=== PATIENT | female | born 1985 | race African-American/Black ===

== ENCOUNTER 2019-07-01 20:50 | Emergency (ER) | payer BC, SELFPAY ==
[2019-07-01 20:57] VITALS: BP 154/100; PULSE 84; RESP 18; TEMP 36.2; O2SAT 100
[2019-07-01] MEDS: SODIUM CHLORIDE 0.9% IV 1,000 ML 999 ML IV CONT (22:22)
[2019-07-01] MEDS: METOCLOPRAMIDE HCL INJ 10 MG/2 ML VIAL IV PUSH (22:23)
[2019-07-01] MEDS: KETOROLAC 30 MG/ML VIAL (*BKC) IV PUSH (22:24)
--- NOTE | 2019-07-01 22:24 | ED.HA ---
HPI - Headache General Chief Complaint: Headache Stated Complaint: migraine Time Seen by Provider: 07/01/19 20:52 History of Present Illness HPI Narrative: Patient is a 34-year-old female who presents the ER with headache. Reports she is been having worsening migraines over the last couple of months. She has been taking triptan's without relief. No fevers or chills or sweats. She has no nausea or vomiting. The headache starts in the back of her head and has settled into the front of her head. She reports it makes her feel lightheaded and unsteady and like her arms are heavy. She has no focal weakness or numbness however. She is without fevers or chills. Related Data Home Medications Medication Instructions Recorded Confirmed norethindrone-e.estradiol-iron tablet 07/01/19 [Aurovela Fe 1- (28)] Allergies Allergy/AdvReac Type Severity Reaction Status Date / Time prednisone Allergy Intermediate HEART Verified 07/01/19 21:50 FLUTTERS Review of Systems Review of Systems: All systems reviewed & are unremarkable except as noted in HPI and below Constitutional: Constitutional: Denies chills, Reports fatigue, Denies fever(s) and Reports weakness Eyes: Eyes: Denies change in vision and Reports photophobia ENT: Denies nasal congestion and Denies sore throat Cardiovascular: Cardiovascular: Denies chest pain and Denies radiating jaw, neck or arm pain Respiratory: Respiratory: Denies chest congestion, Denies dyspnea and Denies wheezing Gastrointestinal: Gastrointestinal: Denies abdominal pain, Denies diarrhea, Denies nausea and Denies vomiting Neurologic: Reports headache(s), Denies focal weakness, Denies numbness and Reports weakness PMFSH Past Medical History Medical History (Updated 07/01/19 @ 23:33 by Jose Palacios MD) Hypertension Migraine headache Surgical History Surgical History (Updated 07/01/19 @ 23:13 by Jose Palacios MD) H/O tubal ligation Social History Social History (Updated 07/01/19 @ 23:13 by Jose Palacios MD) Smoking status: Never smoker Gender identity (if verbalized by the patient): Female Exam Narrative: Exam Narrative: GENERAL: Well-appearing, well-nourished, and in no acute distress. HEAD: Normocephalic, atraumatic. EYES: PERRL and EOMI. ENT: Mucous membranes moist. CHEST: Clear to auscultation. No respiratory distress. HEART: Regular rate and rhythm. Normal peripheral pulses. EXTREMITIES: Normal range of motion. No edema. SKIN: Warm, dry, no rash. NEURO: No focal deficits. Nerves II through XII intact. No upper extremity drift. Alert and oriented x3. Course Course Emergency Course: Headache resolved with Benadryl/Reglan/Toradol and IV fluid. Vital Signs Vital signs: Vital Signs Temperature 97.1 F L 07/01/19 20:57 Pulse Rate 84 07/01/19 20:57 Respiratory Rate 18 07/01/19 20:57 Blood Pressure 154/100 H 07/01/19 20:57 Pulse Oximetry 100 07/01/19 20:57 Temperature 97.1 F L 07/01/19 20:57 Pulse Rate 85 07/01/19 22:26 Respiratory Rate 28 H 07/01/19 22:26 Blood Pressure 147/102 H 07/01/19 22:26 Pulse Oximetry 100 07/01/19 22:26 Discharge Plan Discharge Clinical Impression: Headache Patient Disposition: Home, Self-Care Condition: Stable Instructions: Acute Headache (ED) Additional Instructions: Return to ER if you cannot keep down food or water, you have chest pain or shortness of breath, you have additional concerns. Prescriptions: No Action norethindrone-e.estradiol-iron [Aurovela Fe 1-20 (28)] 1 mg-20 mcg (21)/75 mg (7) tablet RF: 0 Follow-up/Referrals: ROOM PHYSICIAN,EMERGENCY [Primary Care Provider] - Arun Fagan MD [Physician] - 1 Week
[2019-07-01 22:26] VITALS: BP 147/102; PULSE 85; RESP 28; O2SAT 100
[2019-07-01 23:43] VITALS: BP 148/90; PULSE 90; RESP 30; O2SAT 99
== END 2019-07-01 23:43 | disposition home or self-care (01) ==
PROVIDERS: Emergency Provider Emergency Medicine
DX: R51 Headache (principal); I10 Essential (primary) hypertension
CPT/HCPCS: 96361; 96374; 96375; 99284; J1200; J1885; J2765; J7030

== ENCOUNTER 2020-02-23 02:24 | Outpatient (CLI) | payer BC, SELFPAY ==
[2020-02-23 19:32] LABS: SARS-CoV-2 RNA PCR Negative
== END 2020-02-23 02:25 | disposition home or self-care (01) ==
LOC: ANHCOVIDDT 02:24
PROVIDERS: PCP Physician Assistant; Visit Provider Obstetrics & Gynecology
DX: Z01.812 Encounter for preprocedural laboratory examination (principal); Z20.822 Contact with and (suspected) exposure to COVID-19
CPT/HCPCS: C9803; U0003

== ENCOUNTER 2020-02-23 09:24 | Outpatient (CLI) | payer BC, SELFPAY ==
--- NOTE | 2020-02-23 09:52 | ECG_ITS ---
Measurements Intervals [place] Rate: 72 P: 48 [place]: 161 QRS: 39 QRSD: 73 T: 53 QT: 396 QTc: 435 Interpretive Statements SINUS RHYTHM CANNOT RULE OUT SEPTAL INFARCT, AGE INDETERMINATE ABNORMAL ECG Electronically Signed On 02-23-2020 14:21:34 SOCIAL MEDIA ASSISTANT by Dennys Verdugo D.O.
== END 2020-02-23 09:25 | disposition home or self-care (01) ==
PROVIDERS: PCP Physician Assistant; Visit Provider Anesthesiology
DX: Z01.818 Encounter for other preprocedural examination (principal); I10 Essential (primary) hypertension; R94.31 Abnormal electrocardiogram [ECG] [EKG]
CPT/HCPCS: 93005

== ENCOUNTER 2020-02-27 02:53 | Day surgery (SDC) | payer BC, SELFPAY ==
[2020-02-20 17:25] VITALS: BMI 32.9
[2020-02-27] VITALS (7 sets, daily range): BP systolic 126–143; BP diastolic 85–96; PULSE 62–83; RESP 10–20; TEMP 36.2–36.8; O2SAT 100
[2020-02-27] MEDS: ACETAMINOPHEN 500 MG TABLET 1000 MG PO (06:32)
[2020-02-27] MEDS: LACTATED RINGERS 1,000 ML 30 ML IV CONT ×2 (06:35→09:30)
[2020-02-27] MEDS: KETOROLAC 15 MG/ML VIAL (*BKC) IV PUSH (06:38)
--- NOTE | 2020-02-27 07:11 | P.PNAN_ITS ---
Anes - Initial Pre Proc Eval Procedure: Operation Date: 02/27/20 07:30 Proposed Procedures p Laparoscopic Right Ovarian Cystectomy - Hoa Amador MD Date/Time: 02/27/20 07:11 Surgeon: Hoa Amador MD Pre Op Diagnosis: Right Ovarian Cyst Patient Data Age: 35 Gender: F Height: 5 ft 6 in Weight: 92.53 kg Allergies Allergy/AdvReac Type Severity Reaction Status Date / Time prednisone AdvReac Intermediate HEART Verified 02/27/20 06:07 FLUTTERS Home Medications Medication Instructions Recorded Confirmed Type Elderberry 2 caplet PO DAILY 02/20/20 02/27/20 History apple cider vinegar 1,000 mg PO DAILY 02/20/20 02/27/20 History ascorbic acid (vitamin C) 1 g PO DAILY 02/20/20 02/27/20 History fluticasone propionate [Allergy 2 spray INTRANASAL DAILY 02/20/20 02/27/20 History Relief (fluticasone)] loratadine [Claritin] 10 mg PO DAILY 02/20/20 02/27/20 History metoprolol succinate 25 mg PO DAILY 02/20/20 02/27/20 History norethindrone (contraceptive) 0.35 mg PO DAILY 02/20/20 02/27/20 History ubrogepant [Ubrelvy] 50 mg PO ONCE PRN 02/20/20 02/27/20 History zinc oxide-zinc citrate 50 mg PO DAILY 02/20/20 02/27/20 History nitrofurantoin monohyd/m-cryst 1 cap PO BID 02/27/20 02/27/20 History Patient hx anesthesia problems: none Family hx anesthesia problems: none PMFSH Past Medical History Medical History (Updated 02/27/20 @ 07:10 by Ravindra Guzmán MD) Hypertension Migraine headache Mitral valve prolapse Surgical History Surgical History (Updated 07/01/19 @ 23:13 by Jose Palacios MD) H/O tubal ligation Social History Social History (Updated 07/01/19 @ 23:13 by Jose Palacios MD) Smoking status: Never smoker Second hand tobacco smoke exposure: No Alcohol intake: current Alcohol use details: 1 VERY RARELY Substance use: never Living arrangements: with family Gender identity (if verbalized by the patient): Female Spiritual care concerns: No Anes - Eval Final PreProcedure Day of Procedure 02/27/20 07:11 Patient weight: overweight Heart: regular rate and rhythm Lungs: clear to auscultation Airway: Mallampati scale class II Neurological: alert and oriented Last oral intake: >/= 8 hours ASA classification: II Emergent: no Anesthetic plan: proceed Anesthesia type and monitoring: general ETT and standard monitoring Informed Consent: The patient's anesthetic plan and its attendant risks and be nefits were discussed with the patient/family/POA. Questions were solicited and answers provided to the satisfaction of the patient/family/POA.
--- NOTE | 2020-02-27 07:17 | WPDHPUPDATE1 ---
History and Physical Update Update Date/Time: 02/27/20 07:17 History and Physical has been reviewed, including an updated exam of the patient. There are NO changes in the patient's condition. Risks, benefits, and alternatives have been discussed and questions answered. Patient agrees to proceed with procedure.
--- NOTE | 2020-02-27 09:15 | P.OP_ITS ---
Procedure Note - Detailed Date of procedure: 02/27/20 Pre-op diagnosis: Right Ovarian Cyst Pelvic pain Procedure performed: Radical resection of pelvic peritoneum and endometriosis, 1.25 hours of dissection Description of procedure: The patient was taken the operating room. She was prepped and draped in the dorsal lithotomy position after induction of general anesthesia. A 5 mm left upper quadrant incision was made in the abdominal skin with a scalpel. A 5 mm trocar was inserted the intra-abdominal cavity under direct visualization of the scope. A 5 mm left lower quadrant incision was made with the scalp on the abdominal skin and a 5 mm trocar was inserted the intra- abdominal cavity under direct visualization of the scope. A 5 mm infraumbilical incision was made with scalpel and a 5 mm trocar was inserted into the intra-abdominal cavity under direct visualization of the scope. A 4th trocar was placed in the right lower quadrant. A 5 mm skin incision was made and a 5 mm trocar was inserted the intra-abdominal cavity and direct position of the scope. The above findings were noted. Resection of the peritoneum in the posterior cul-de-sac was performed. It was done with sharp and blunt dissection using cautery. The ureters were dissected out completely from the pelvic brim down to the uterine arteries. The pelvic peritoneum was removed from the suspensory ligament the ovaries laterally and infundibulopelvic ligaments laterally and from the pelvic brim down to the cervix. The pelvis was irrigated with copious amounts of normal saline. Interceed was placed over the bilateral hemipelvis is. Two pieces were placed. It was brought in through a 5 mm trocar. The pneumoperitoneum was reduced. The trocars were removed. The patient was taken recovery room stable condition. Sponge lap and needle counts were correct x2. Anesthesia: GETA Surgeon: Hoa Amador MD Estimated blood loss (mL): 40 Drains: No Packing: No Complications: No immediate complications Condition: stable Disposition: PACU Findings: Fine endometriosis diffusely spread throughout the bilateral hemipelvis ease. Hemoperitoneum, ruptured ovarian cyst.
[2020-02-27] MEDS: oxyCODONE HCL (*CRX) 5 MG TAB IR PO (10:44)
== END 2020-02-27 11:38 | disposition home or self-care (01) ==
PROVIDERS: PCP Physician Assistant; Visit Provider Obstetrics & Gynecology
PROC: (CPT 49320; principal; 2020-02-27 07:30)
DX: N83.201 Unspecified ovarian cyst, right side (principal); K66.8 Other specified disorders of peritoneum; N73.6 Female pelvic peritoneal adhesions (postinfective); R10.2 Pelvic and perineal pain; K66.1 Hemoperitoneum; I10 Essential (primary) hypertension; I34.1 Nonrheumatic mitral (valve) prolapse
CPT/HCPCS: 58662; 88305; A9270; J0330; J1885; J2250; J2405; J2704; J2710; J3010; J7030; J7120; Q9968

== ENCOUNTER → 2020-05-31 01:06 | Outpatient (CLI) | payer BC, SELFPAY ==
[2020-05-31 19:44] LABS: SARS-CoV-2 RNA PCR Negative
== END ==
PROVIDERS: PCP Physician Assistant; Visit Provider Obstetrics & Gynecology
DX: Z01.812 Encounter for preprocedural laboratory examination (principal); Z20.822 Contact with and (suspected) exposure to COVID-19
CPT/HCPCS: C9803; U0003; U0005

== ENCOUNTER 2020-06-04 02:56 | Day surgery (SDC) | payer BC, SELFPAY ==
[2020-05-20 15:26] VITALS: BMI 32.3
[2020-06-04] VITALS (9 sets, daily range): BP systolic 103–148; BP diastolic 70–98; PULSE 66–81; RESP 14–18; TEMP 36.4–37.1; O2SAT 100
--- NOTE | 2020-06-04 06:33 | P.PNAN_ITS ---
Anes - Initial Pre Proc Eval Procedure: Operation Date: 06/04/20 07:30 Proposed Procedures p Total Laparoscopic Hysterectomy - Hoa Amador MD Date/Time: 06/04/20 06:33 Surgeon: Hoa Amador MD Pre Op Diagnosis: dysmennorrhea Patient Data Age: 35 Gender: F Height: 5 ft 6 in Weight: 91.5 kg Allergies Allergy/AdvReac Type Severity Reaction Status Date / Time prednisone AdvReac Intermediate HEART Verified 06/04/20 06:10 FLUTTERS Home Medications Medication Instructions Recorded Confirmed Type Elderberry 2 caplet PO DAILY 02/20/20 06/04/20 History Ubrelvy 100 mg PO ONCE PRN 02/20/20 05/20/20 History apple cider vinegar 1,000 mg PO DAILY 02/20/20 06/04/20 History ascorbic acid (vitamin C) 1 g PO DAILY 02/20/20 06/04/20 History metoprolol succinate 25 mg PO DAILY 02/20/20 06/04/20 History zinc oxide-zinc citrate 50 mg PO DAILY 02/20/20 06/04/20 History Patient hx anesthesia problems: none Family hx anesthesia problems: none [facility] Past Medical History Medical History Hypertension Migraine headache Mitral valve prolapse Surgical History Surgical History (Updated 06/04/20 @ 06:34 by Marquise Drew MD) H/O laparoscopy H/O tubal ligation Social History Social History Smoking status: Never smoker Second hand tobacco smoke exposure: No Alcohol intake: never Substance use: never Substance use type: does not use Living arrangements: with family Gender identity (if verbalized by the patient): Female Spiritual care concerns: No Anes - Eval Final PreProcedure Day of Procedure 06/04/20 06:33 Patient weight: obese Heart: regular rate and rhythm Lungs: clear to auscultation Airway: Mallampati scale class II Neurological: alert and oriented Last oral intake: >/= 8 hours ASA classification: II Emergent: no Anesthetic plan: proceed Anesthesia type and monitoring: general ETT and standard monitoring Informed Consent: The patient's anesthetic plan and its attendant risks and benefits were discussed with the patient/family/POA. Questions were solicited and answers provided to the satisfaction of the patient/family/POA.
[2020-06-04] MEDS: LACTATED RINGERS 1,000 ML 30 ML IV CONT ×2 (06:48→10:11)
[2020-06-04] MEDS: ACETAMINOPHEN 500 MG TABLET 1000 MG PO (06:50)
[2020-06-04] MEDS: KETOROLAC 15 MG/ML VIAL (*BKC) IV PUSH (06:50)
--- NOTE | 2020-06-04 07:22 | ECG_ITS ---
Measurements Intervals [place] Rate: 69 P: 49 [place]: 170 QRS: 35 QRSD: 71 T: 55 QT: 392 QTc: 420 Interpretive Statements SINUS RHYTHM CANNOT RULE OUT SEPTAL INFARCT, AGE INDETERMINATE ABNORMAL ECG Electronically Signed On 06-04-2020 8:00:48 CDT by Dennys Verdugo D.O.
--- NOTE | 2020-06-04 07:34 | WPDHPUPDATE1 ---
History and Physical Update Update Date/Time: 06/04/20 07:34 History and Physical has been reviewed, including an updated exam of the patient. There are NO changes in the patient's condition. Risks, benefits, and alternatives have been discussed and questions answered. Patient agrees to proceed with procedure.
[2020-06-04] MEDS: ceFAZolin 2 GM/D5W 50 ML 2 GM/50 ML BAG IVPB (07:40)
--- NOTE | 2020-06-04 09:56 | PM.PROC ---
Procedure Note - Detailed Date of procedure: 06/04/20 Pre-op diagnosis: dysmennorrhea Post-op diagnosis: same Procedure performed: Intraoperative consultation Description of procedure: I was called into the operating room by Dr. Amador during laparoscopic hysterectomy. Upon entering the operating room, the patient was asleep with ports in place in steep Trendelenburg. Dr. Amador had already removed the uterus and repaired the cuff. There was dissection adjacent to the right ureter without significant bleeding. Dr. Amador states that there was no electrocautery used in this area. The ureter was intact without injury, there was no ureteral bleeding, and the right ureter had normal peristalsis. Based on these findings, it did not appear that ureteral stenting, or other urologic intervention was needed. Inspection of the left ureter also did not note any injury. Dr. Amador was in agreement and the case was turned back over to him. Anesthesia: GETA Surgeon: Leticia Estrella MD Drains: No Packing: No Complications: No immediate complications Condition: stable
--- NOTE | 2020-06-04 10:01 | SUR.OPER ---
dr. darling consulted for inspection of ureter. in room at approx. 0952, did not scrub in, examined by looking at laparascopic monitor, left room at approx 0958
--- NOTE | 2020-06-04 10:22 | PM.PROC ---
Procedure Note - Detailed Date of procedure: 06/04/20 Pre-op diagnosis: dysmennorrhea [place] Post-op diagnosis: same Procedure performed: Total laparoscopic hysterectomy and Bilateral Salpingectomy. Description of procedure: The patient was taken to the operating room. She was prepped and draped in the dorsal lithotomy position. A speculum was placed in the vagina. The cervix was grasped with a tenaculum. Stay sutures were placed at 3 and 9:00 a.m. of 0 Vicryl. The stay sutures were brought through the Ryan up. The BASILIA manipulator was placed in the vagina with a fixed Ryan cup. The cup was then pushed up around the cervix. The sutures were tied to the handle of the BASILIA manipulator. A 5 mm incision was made on the abdominal skin of the left upper quadrant using a scalpel. A 5 mm trocar was inserted into the intra-abdominal cavity under direct visualization the scope. Pneumoperitoneum was achieved. An 11 mm incision was made in the left lower quadrant of the abdomen with a scalpel. A 11 mm trocar was inserted into the intra-abdominal cavity under direct visualization the scope. A 5 mm periumbilical incision was made. A 5 mm scope was placed into the intra-abdominal cavity under direct visualization of the scope. The bilateral fallopian tubes were removed. The paratubal tissue in the area of the uterus was grasped with the LigaSure cautery and transected after being cauterized. The paratubal tissue from the ovary to the uterine cornu was cauterized and transected with LigaSure cautery. This was all done in a bilateral fashion. The tube was transected at the area of the uterine cornua and the tubes was removed through the 11 mm trocar site. The suspensory ligament of the ovary was cauterized and transected with ligature cautery in a bilateral fashion. The fallopian tubes were cauterized and transected in a bilateral fashion with LigaSure cautery. The round ligaments were cauterized and transected in bilateral fashion with LigaSure cautery. The round ligaments were cauterized and transected bilaterally with LigaSure cautery. The broad ligaments were cauterized and transected along the lateral aspects of the uterus down the level of the uterine arteries. A bladder flap was created using sharp and blunt dissection. The ureters were dissected out bilaterally down to the level of the uterine arteries. During the dissection, opening the peritoneum, a excision was made close to the ureter. There was an intraoperative consult with Dr. Dominique. He observed the area of concern and felt it was intact. The ureters could be visualized from the pelvic brim down the uterine arteries. Staying very close to the cervix the parametrium was cauterized transected in a stepwise fashion down to the level of the Ryan cup. The Bladder flap was moved distally over the Ryan cup using sharp and blunt dissection. The impression of the entire cup was visualized around the cervix. An incision was made with unipolar cautery down under the Ryan cup creating a colpotomy incision all the way around the cervix. The uterus was taken out through the vagina. A pneumo occluder was placed in the vagina. The vagina was closed with 0 V lock suture in a running fashion. The ureters were identified again and found to be intact to the level of the uterine arteries. The pelvis was irrigated with a copious amount of antibiotic irrigation. The pneumoperitoneum was reduced. The trocars were removed. The skin was closed subcuticular 4 Monocryl covered with Dermabond. The pneumo occluder was removed from the vagina. The vagina was irrigated with Betadine. The patient tolerated the procedure well. She was taken to the recovery room in stable condition. Sponge lap and needle counts were correct x2. Anesthesia: GETA Surgeon: Hoa Amador MD Estimated blood loss (mL): 200 Drains: No Packing: No Pathology: yes Complications: No immediate complications Condition: stable Disposition: PAC
--- NOTE | 2020-06-04 11:07 | SUR.PHASEI ---
1103 sbar faxed floor notified
--- NOTE | 2020-06-04 11:35 | OBPPTRN ---
Patient transferred to post room # 286 via bed. Support person present. Oriented to unit, room, information board, rooming in, admission packet and security measures. Patient verbalizes understanding.
[2020-06-04] MEDS: KETOROLAC 30 MG/ML VIAL (*BKC) IV PUSH (11:55)
[2020-06-04] MEDS: HYDROcodone/acetaminophen (*CRX) 10-325 MG TABLET 1 TAB PO (11:56)
[2020-06-04] MEDS: DEXTROSE 5%/0.45% SOD CHL 1,000 ML 125 ML IV CONT (11:56)
[2020-06-04] MEDS: IBUPROFEN 600 MG TABLET PO (20:46)
[2020-06-04] MEDS: HYDROcodone/acetaminophen (*CRX) 5-325 MG TABLET 1 TAB PO (20:46)
[2020-06-05 05:00] VITALS: BP 115/73; PULSE 81; RESP 16; TEMP 36.6
[2020-06-05 07:40] VITALS: BP 122/82; PULSE 84; RESP 16; TEMP 36.6; O2SAT 100
--- NOTE | 2020-06-05 08:01 | PM.GYNPNOP ---
CHEMICAL ENGINEERING TEACHER - A/P Postoperative Procedures: Procedures Operation Date: 06/04/20 07:30 Actual Procedures Side Surgeon p Total Laparoscopic Hysterectomy with bilateral salpingectomy Bilateral R. Buddy Amador MD Postoperative day: 1 Postoperative status: doing well and other (Tollerating Regular Diet) Postoperative plan: routine post-op care and discharge Time Spent With Patient Time: Total time spent is greater than 50% in coordination of care (as documented) at patient's floor/unit and/or counseling patient: Time with patient: 15 - 25 minutes CHEMICAL ENGINEERING TEACHER- PN:Subj Post-Op Subjective Date/time seen: 06/05/20 08:01 Subjective: patient reports feeling better, pain is well controlled and patient is tolerating oral intake Exam Const: General: cooperative, healthy appearing, comfortable and no acute distress Resp: Auscultation: no crackles, no rales, no rhonchi and no wheezes Cardio: Rhythm: regular rhythm Heart sounds: no click and no murmurs GI: Inspection: non-distended Auscultation: normal bowel sounds Other: Incisions - CDI Extrem: General: normal to inspection, no pedal edema and no calf tenderness CHEMICAL ENGINEERING TEACHER - PN: Obj Data Vital Signs Vital Signs: Vital Signs - 24 hr 06/04/20 10:15 06/04/20 10:30 06/04/20 10:45 Temperature 98.8 F Pulse Rate 74 71 66 Respiratory Rate 15 16 15 Blood Pressure 103/70 131/88 142/93 H Pulse Oximetry 100 100 100 06/04/20 11:00 06/04/20 11:15 06/04/20 11:35 Temperature 97.6 F Pulse Rate 71 66 70 Respiratory Rate 18 16 14 Blood Pressure 148/98 H 138/91 H 145/95 H Pulse Oximetry 100 100 100 06/04/20 16:00 06/04/20 20:37 06/05/20 05:00 Temperature 98.3 F 98.0 F 97.8 F Pulse Rate 76 81 81 Respiratory Rate 16 16 16 Blood Pressure 121/76 124/86 115/73 Pulse Oximetry Intake/Output Intake/Output: Intake & Output 06/02/20 06/03/20 06/04/20 06/05/20 23:59 23:59 23:59 23:59 Intake Total 1440 Output Total 1965 Balance -525 Meds/Results Medications: Active Medications Generic Name Dose Route Start Last Admin Trade Name Freq PRN Reason Stop Dose Admin Hydrocodone Bitart/Acetaminophen 1 tab 06/04/20 11:30 06/04/20 20:46 Hydrocodone/Acetaminophen (*Crx) 5-325 Mg Tablet PO 1 tab Q3H PRN Administration Pain Rated 5 or Less Hydrocodone Bitart/Acetaminophen 1 tab 06/04/20 11:30 06/04/20 11:56 Hydrocodone/Acetaminophen (*Crx) 10-325 Mg Tablet PO 1 tab Q3H PRN Administration Pain Rated 6 or Greater Ibuprofen 600 mg 06/04/20 11:30 06/04/20 20:46 Ibuprofen 600 Mg Tablet PO 600 mg Q6H PRN Administration Cramping
--- NOTE | 2020-06-05 08:02 | WPDANESPN ---
Anes - Prog Note Post-Op Date/Time: 06/05/20 08:02 Cardiovascular status: normal Respiratory status: normal Airway patency: baseline Mental status: baseline Post-Op hydration status: normal Vital Signs: Last Vital Signs Temp 97.8 F 06/05/20 05:00 Pulse 81 06/05/20 05:00 Resp 16 06/05/20 05:00 BP 115/73 06/05/20 05:00 Pulse Ox 100 06/04/20 11:35 Pain Score (VAS): 02/23 I/O: Intake & Output 06/04/20 06/05/20 06/05/20 23:59 07:59 15:59 Intake Total 1240 Output Total 1875 Balance -635 Post-procedural complaints: none Patient Feedback: Patient satisfied with anesthetic care.
[2020-06-05] MEDS: IBUPROFEN 600 MG TABLET PO (09:09)
[2020-06-05] MEDS: HYDROcodone/acetaminophen (*CRX) 10-325 MG TABLET 1 TAB PO (09:10)
[2020-06-05] MEDS: SIMETHICONE 80 MG TAB.CHEW PO (09:31)
--- NOTE | 2020-06-05 12:18 | PC.NURSE ---
1056 Pt states she has read her discharge papers and voiced understanding; nurse reviewed them with her. She signed her papers in understanding.
== END 2020-06-05 11:05 | disposition home or self-care (01) ==
LOC: ANHSURGERY 06:01 → ANHOB2 11:32
PROVIDERS: PCP Physician Assistant; Visit Provider Obstetrics & Gynecology
PROC: 0UT9FZZ Resection of Uterus, Via Natural or Artificial Opening With Percutaneous Endoscopic Assistance (ICD-10-PCS; CPT 58571; principal; 2020-06-04 07:30)
DX: N94.6 Dysmenorrhea, unspecified (principal); N80.0 Endometriosis of uterus; N73.6 Female pelvic peritoneal adhesions (postinfective); I10 Essential (primary) hypertension; I34.1 Nonrheumatic mitral (valve) prolapse; E66.9 Obesity, unspecified; Z68.32 Body mass index [BMI] 32.0-32.9, adult; R94.31 Abnormal electrocardiogram [ECG] [EKG]
CPT/HCPCS: 58571; 36415; 86850; 86900; 86901; 88307; 93005; 99199; A9270; J0690; J1100; J1885; J2250; J2405; J2704; J2710; J3010; J7030; J7120

== ENCOUNTER 2021-03-14 09:03 | Emergency (ER) | payer OTHER, SELFPAY ==
--- NOTE | ~2021-03-14 | CT_ITS ---
EXAMINATION: CT abdomen pelvis wo con DATE: 03/14/2021 11:55 INDICATION: Flank pain. Hematuria. TECHNIQUE: Computed tomography (CT) of the abdomen and pelvis was performed without intravenous contr ast. Automated exposure control and iterative reconstruction technique were employed. The dose-length product was 843.56 mGy-cm. COMPARISON: None. FINDINGS: The visualized portions of the lung bases demonstrate mild atelectasis. No pleural effusion . The heart size is normal. No pericardial effusion. There is a small sliding hiatal hernia. The live r, gallbladder, spleen, pancreas, adrenal glands, and right kidney are normal. There is a 5 mm stone in left kidney. There are no dilated loops of bowel. The appendix is normal. There are no pathologica lly enlarged lymph nodes. There is physiologic fluid in the pelvis. There is subcutaneous fat strandi ng in the anterior abdominal wall, likely changes of abdominoplasty. There is mild osteoarthritis of the hips. IMPRESSION: 1. 5 mm nonobstructing left kidney stone. 2. Small sliding hiatal hernia. Reviewed, dictated and finalized at location A. [employer]
[2021-03-14 09:06] VITALS: BP 141/93; PULSE 60; RESP 16; TEMP 36.8; O2SAT 99
[2021-03-14 11:04] LABS: Basophils Percent Auto 0.3 % (0.2-1.2); Eosinophils Absolute Auto 0.2 K/mm3 (0-0.3); Eosinophils Percent Auto 1.8 % (0-4.4); Hematocrit 39.8 % (37.0-47.0); Hemoglobin 13.5 g/dL (12.0-15.0); Immature Granulocyte Absolute 0.04 K/mm3 (0.00-0.031); Immature Granulocyte Percent A 0.3 % (0-0.5); Lymphocytes Absolute Auto 2.46 K/mm3 (0.9-3.2); Lymphocytes Percent Auto 21.4 % (18.3-44.2); Mean Corpuscular HGB Conc 33.9 g/dl (32-36); Mean Corpuscular Volume 91.5 fl (80-100); Mean Platelet Volume 8.9 fl (7.4-10.4); Monocytes Absolute Auto 0.8 K/mm3 (0.1-0.6); Monocytes Percent Auto 6.9 % (2.6-8.5); Neutrophils Absolute Auto 7.9 K/mm3 (1.3-6.7); Neutrophils Percent Auto 69.3 % (45.5-73.1); Platelet Count Result 309 k/mm3 (150-375); Red Blood Count 4.35 M/mm3 (4.2-5.4); White Blood Count 11.5 K/mm3 (4.5-10.0)
[2021-03-14 11:12] LABS: Add Urine Microscopic? YES; Appearance Urine Cloudy (Clear); Bilirubin Urine Negative (Negative); Blood Urine 3+ (Negative); Budding Yeast Urine Present /hpf; Glucose Urine UA Negative (Negative); Ketones Urine Negative (Negative); Leukocyte Esterase Ur 2+ LEU/UL (Negative); Mucus Urine Few /lpf; Nitrate Urine Negative (Negative); Protein Urine 2+ mg/dL (Negative); RBC Urine >75 /hpf (0-2); Specific Grav Ur 1.021 (1.001-1.035); Urobilinogen Urine Negative mg/dL (<2.0); WBC Urine >75 /hpf
[2021-03-14 11:13] LABS: Alanine Aminotransferase 15 U/L (4-35); Albumin Level 4.3 g/dL (3.5-5.1); Alkaline Phosphatase 48 U/L (38-126); Anion Gap 5 mmol/L (8-16); Aspartate Amino Transferase 21 U/L (14-36); Bilirubin,Total 1.1 mg/dL (0.2-1.3); Blood Urea Nitrogen 12 mg/dL (7-17); Calcium 9.3 mg/dL (8.4-10.2); Carbon Dioxide 24 mmol/L (22-30); Chloride 107 mmol/L (98-107); Color Urine Brown (Yellow); Estimated CRCL calculation 95 ml/min; Estimated Glomerular Filt Rate > 60; Glucose 92 mg/dL (65-110); Potassium 4.1 mmol/L (3.4-5.0); Sodium 136 mmol/L (137-145)
--- NOTE | 2021-03-14 12:52 | ED.FEMALEGU ---
HPI - Female Genitourinary General Chief complaint: Urogenital-Female Stated complaint: hematuria Time Seen by Provider: 03/14/21 10:06 Source: patient and RN notes reviewed Mode of arrival: ambulatory Limitations: no limitations History of Present Illness HPI Narrative: This is a 36 year old female who presents for evaluation of hematuria. This morning she noticed small amount of blood in toilet and when she wipes. She also reports suprapubic cramping and lower back pain. She states she had partial hysterectomy so this is not vaginal bleeding. She also has increased urinary urgency and frequency with cloudy urine. She denies nausea, vomiting or fever. Denies previous history of similar symptoms. She was told years ago that she had kidney stone. Related Data Home Medications Medication Instructions Recorded Confirmed Elderberry 2 caplet PO DAILY 02/20/20 06/04/20 Ubrelvy 100 mg PO ONCE PRN 02/20/20 05/20/20 apple cider vinegar 1,000 mg PO DAILY 02/20/20 06/04/20 ascorbic acid (vitamin C) 1 g PO DAILY 02/20/20 06/04/20 metoprolol succinate 25 mg PO DAILY 02/20/20 06/04/20 zinc oxide-zinc citrate 50 mg PO DAILY 02/20/20 06/04/20 Allergies Allergy/AdvReac Type Severity Reaction Status Date / Time prednisone AdvReac Intermediate HEART Verified 03/14/21 13:15 FLUTTERS Review of Systems Review of Systems: All systems reviewed & are unremarkable except as noted in HPI and below PMFSH Past Medical History Medical History (Updated 03/14/21 @ 12:58 by Ama Sharma MD) Cervical cancer Hypertension Migraine headache Mitral valve prolapse Surgical History Surgical History H/O laparoscopy H/O tubal ligation Social History Social History Smoking status: Never smoker Second hand tobacco smoke exposure: No Alcohol intake: never Alcohol use details: 1 VERY RARELY Substance use: never Substance use type: does not use Gender identity (if verbalized by the patient): Female Spiritual care concerns: No Exam Const: General: no acute distress and alert Orientation/consciousness: patient oriented x3 Eyes: EOM: EOMs intact bilaterally Chest: Chest palpation & inspection: normal inspection of the chest Resp: Effort & Inspection: normal respiratory effort Auscultation: clear to auscultation bilaterally Cardio: Rate: regular rate Rhythm: regular rhythm Heart sounds: no murmurs GI: GI Palp: Yes Soft to palpation, Yes Tenderness to palpation present (GI) (bilateral lower quadrant, suprapubic), No Guarding due to palpation present (GI) and No Rigid due to palpation Auscultation: normal bowel sounds : General: Yes no CVA tenderness Back/Spine/Pelvis: Back: no CVA tenderness Skin: General skin exam: normal color Neuro: General: patient oriented x3, moves all extremities and CN's II-XI intact bilaterally Psych: Mental Status: mental status grossly normal Affect: normal affect Course Reevaluation(s) Reevaluation #1: I have discussed CT with patient. SHe will be started on antibiotics for cystitis. She also found to have kidney stone. Date: 03/14/21 Time: 12:55 Vital Signs Vital signs: Vital Signs Temperature 98.3 F 03/14/21 09:06 Pulse Rate 60 03/14/21 09:06 Respiratory Rate 16 03/14/21 09:06 Blood Pressure 141/93 H 03/14/21 09:06 Pulse Oximetry 99 03/14/21 09:06 Temperature 98.3 F 03/14/21 09:06 Pulse Rate 86 03/14/21 13:56 Respiratory Rate 16 03/14/21 13:56 Blood Pressure 141/93 H 03/14/21 09:06 Pulse Oximetry 100 03/14/21 13:56 MDM - Female Genitourinary Lab Data Attestation: I reviewed the patient's lab results. Result diagrams: 03/14/21 10:50 03/14/21 10:50 Labs: Lab Results 03/14/21 03/14/21 03/14/21 Range/Units 10:50 10:50 10:50 WBC 11.5 H (4.5-10.0) K/mm3 RBC
[2021-03-14 13:56] VITALS: PULSE 86; RESP 16; O2SAT 100
== END 2021-03-14 13:58 | disposition home or self-care (01) ==
PROVIDERS: Emergency Provider General Practice; PCP Physician Assistant
DX: N30.90 Cystitis, unspecified without hematuria (principal); N20.0 Calculus of kidney; I10 Essential (primary) hypertension; Z85.41 Personal history of malignant neoplasm of cervix uteri; I34.1 Nonrheumatic mitral (valve) prolapse; K44.9 Diaphragmatic hernia without obstruction or gangrene
CPT/HCPCS: 36415; 74176; 80053; 81001; 85025; 87086; 87088; 96365; 99284; J0696

== ENCOUNTER 2021-12-12 22:18 | Emergency (ER) | payer OTHER, SELFPAY ==
[2021-12-12 22:23] VITALS: BP 139/97; PULSE 93; RESP 17; TEMP 36.4; O2SAT 99
--- NOTE | 2021-12-13 00:51 | PC.NURSE ---
Pt approached triage desk and states she is going to go home, as she has work in the morning. This RN explained that we have rooms opening up. Pt refused to wait, ambulated out of ED with steady gait.
== END 2021-12-13 00:53 | disposition left against medical advice (07) ==
PROVIDERS: PCP Physician Assistant
DX: Z53.21 Procedure and treatment not carried out due to patient leaving prior to being seen by health care provider (principal)
CPT/HCPCS: 99199

== ENCOUNTER 2022-04-07 05:54 | Emergency (ER) | payer OTHER, SELFPAY ==
--- NOTE | ~2022-04-07 | XR_ITS ---
AP and lateral views of the neck CLINICAL HISTORY: Left-sided neck pain FINDINGS: There is mild reversal of the normal cervical lordosis. Osseous structures and intervertebr al disc spaces otherwise are unremarkable. There is mild prevertebral soft tissue swelling. Epiglotti s unremarkable. No radiopaque foreign body seen. IMPRESSION: Mild prevertebral soft tissue swelling. Consider contrast enhanced neck CT to better evaluate for ret ropharyngeal or prevertebral abscess. Reviewed, dictated and finalized at [facility]. [employer]IST IMPRESSION: Mild prevertebral soft tissue swelling. Consider contrast enhanced neck CT to b benny evaluate for retropharyngeal or prevertebral abscess.
--- NOTE | ~2022-04-07 | CT_ITS ---
CT scan of the Neck Technique: 2.5 mm axial scans were obtained through the neck after intravenous administration of 75 c c Omnipaque 350. Coronal and sagittal reconstructions of the neck were obtained. Dose reduction techn ique was used on this scan by utilizing automated exposure control and iterative reconstruction techn ique. The dose-length product (DLP) was 518.52 mGy-cm. Clinical History: Abscess Findings: There is no evidence of any significant cervical lymphadenopathy. Several small, nonenlarged jugulo- digastric and posterior cervical lymph nodes are noted bilaterally. Parapharyngeal spaces appear norm al bilaterally. The parotid and submandibular glands appear normal. Suggestion of minimal retropharyngeal edema, but no abscess present. No soft tissue masses are seen i n the neck. The thyroid gland appears normal. Images of the lung apices reveal no abnormalities. Suggestion of bi lateral proptosis. Impression: Suggestion of mild retropharyngeal edematous change, but no discrete abscess identified. Suggestion of bilateral proptosis. Correlate with physical exam. Consider correlation for any thyroid disease. Reviewed, dictated and finalized at [facility]. T BREEDER Impression: Suggestion of mild retropharyngeal edematous change, but no discrete abscess id entified. Suggestion of bilateral proptosis. Correlate with physical exam. Consider corre lation for any thyroid disease.
[2022-04-07 06:01] VITALS: BP 142/96; PULSE 91; RESP 18; TEMP 36.4; O2SAT 99
--- NOTE | 2022-04-07 07:07 | ED.GENADULT ---
HPI - General Adult General Chief complaint: Allergic Reaction Stated complaint: ST, swollen face, allergic reaction (?) Time Seen by Provider: 04/07/22 07:07 Source: patient Mode of arrival: ambulatory Limitations: no limitations History of Present Illness HPI narrative: The patient is a 37-year-old female presenting to the emergency department for evaluation of left-sided facial and neck swelling. Patient reports congestion, sore throat worsening over the past 2 days. Patient reports left-sided neck fullness and watering of her left eye. She denies any redness, blistering or significant pain. She is able to swallow and tolerate oral intake. She denies nausea or vomiting. She denies fever or chills. She denies significant ear pain or discharge. Patient denies recent sick contacts. She is able to flex and extend at the neck. She denies any numbness in her upper or lower extremities. She denies any vocal hoarseness or changes. She denies any shortness of breath, cough. Related Data Home Medications Medication Instructions Recorded Confirmed Elderberry 2 caplet PO DAILY 02/20/20 06/04/20 apple cider vinegar 500 mg tablet 1,000 mg PO DAILY 02/20/20 06/04/20 ascorbic acid (vitamin C) 1,000 mg 1 g PO DAILY 02/20/20 06/04/20 tablet metoprolol succinate 25 mg 25 mg PO DAILY 02/20/20 06/04/20 tablet,extended release 24 hr ubrogepant 50 mg tablet (Ubrelvy) 100 mg PO ONCE PRN Migraine 02/20/20 05/20/20 Headache zinc oxide-zinc citrate 50 mg 50 mg PO DAILY 02/20/20 06/04/20 tablet Allergies Allergy/AdvReac Type Severity Reaction Status Date / Time prednisone AdvReac Intermediate HEART Verified 04/07/22 06:13 FLUTTERS Review of Systems Review of Systems: CONSTITUTIONAL: Denies fever, chills, or sweats. EYES: Denies visual changes, redness, or discharge. ENT: Reports runny nose, congestion, sore throat CARDIOVASCULAR: Denies chest pain, palpitations, or edema. RESPIRATORY: Denies cough or dyspnea. GASTROINTESTINAL: Denies abdominal pain, nausea, vomiting, or diarrhea. SKIN: Denies rash or itching. MUSCULOSKELETAL: Denies back pain, joint pain, or myalgia. NEUROLOGIC: Denies headache, numbness, or weakness. [facility] Past Medical History Medical History Cervical cancer Hypertension Migraine headache Mitral valve prolapse Surgical History Surgical History H/O laparoscopy H/O tubal ligation Social History Social History Smoking status: Never smoker Second hand tobacco smoke exposure: No Alcohol intake: never Alcohol use details: 1 VERY RARELY Substance use: never Substance use type: does not use Living arrangements: with family Gender identity (if verbalized by the patient): Female Spiritual care concerns: No Exam Narrative: GENERAL: Awake, alert, conversant HEAD: Normocephalic, atraumatic. EYES: PERRLA and EOMI. No significant facial edema, erythema. ENT: Nares clear, no rhinorrhea or epistaxis. Mucous membranes moist. Uvula is midline without edema. No trismus. There is tonsillar edema, erythema, no exudate present. NECK: Supple. Bilateral call cervical lymphadenopathy, left greater than the right. Mildly tender. No erythema. No significant edema. Intact flexion and extension. CHEST: No respiratory distress, breathing even and non labored HEART: Regular rate, sinus rhythm ABDOMEN:Non distended, non tender EXTREMITIES: Normal range of motion. No edema. SKIN: Warm, dry, no rash. NEURO:No focal deficits. Alert and oriented x3 Course Vital Signs Vital signs: Vital Signs Temperature 36.4 C 04/07/22 06:01 Pulse Rate 91 04/07/22 06:01 Respiratory Rate 18 04/07/22 06:01 Blood Pressure 142/96 H 04/07/22 06:01 Pulse Oximetry 99 04/07/22 06:01 Oxygen Delivery Room Air 04/07/22 06:01 Temp
[2022-04-07] MEDS: ACETAMINOPHEN 500 MG TABLET 1000 MG PO (08:27)
[2022-04-07] MEDS: SODIUM CHLORIDE 0.9% IV 500 ML 999 ML IV CONT (08:28)
[2022-04-07] MEDS: IBUPROFEN 400 MG TABLET PO (08:28)
[2022-04-07 09:51] LABS: Strep Group A RT-PCR NOT DETECTED (Negative)
[2022-04-07 10:00] LABS: Anion Gap 6 mmol/L (8-16); Blood Urea Nitrogen 8 mg/dL (7-17); Calcium 8.4 mg/dL (8.4-10.2); Carbon Dioxide 24 mmol/L (22-30); Chloride 107 mmol/L (98-107); Estimated CRCL calculation 96 ml/min; Estimated Glomerular Filt Rate > 60; Glucose 90 mg/dL (65-110); Potassium 4.3 mmol/L (3.4-5.0); Sodium 137 mmol/L (137-145)
[2022-04-07 10:02] LABS: Influenza A QL RT-PCR Negative (Negative); Influenza B QL RT-PCR Negative (Negative); RSV RNA, RT-PCR Negative (Negative); SARS-CoV-2 RNA PCR Negative
[2022-04-07 10:08] LABS: Basophils Absolute Auto 0.1 K/mm3 (0.0-0.1); Eosinophils Absolute Auto 0.2 K/mm3 (0-0.3); Eosinophils Percent Auto 2.9 % (0-4.4); Hematocrit 39.5 % (37.0-47.0); Hemoglobin 13.2 g/dL (12.0-15.0); Immature Granulocyte Absolute 0.03 K/mm3 (0.00-0.031); Immature Granulocyte Percent A 0.6 % (0-0.5); Lymphocytes Absolute Auto 1.03 K/mm3 (0.9-3.2); Lymphocytes Percent Auto 19.6 % (18.3-44.2); Mean Corpuscular HGB Conc 33.4 g/dl (32-36); Mean Corpuscular Hemoglobin 31.2 pg (26-34); Mean Corpuscular Volume 93.4 fl (80-100); Mean Platelet Volume 9.9 fl (7.4-10.4); Monocytes Absolute Auto 0.5 K/mm3 (0.1-0.6); Monocytes Percent Auto 9.3 % (2.6-8.5); Neutrophils Absolute Auto 3.5 K/mm3 (1.3-6.7); Neutrophils Percent Auto 66.6 % (45.5-73.1); Platelet Count Result 238 k/mm3 (150-375); Red Blood Count 4.23 M/mm3 (4.2-5.4); Red Cell Distribution Width 12.2 % (11.5-14.5); White Blood Count 5.3 K/mm3 (4.5-10.0)
== END 2022-04-07 11:30 | disposition home or self-care (01) ==
PROVIDERS: Emergency Provider Emergency Medicine; PCP Physician Assistant
DX: J06.9 Acute upper respiratory infection, unspecified (principal); Z20.822 Contact with and (suspected) exposure to COVID-19; I10 Essential (primary) hypertension
CPT/HCPCS: 36415; 70360; 70491; 80048; 85025; 87637; 87651; 96361; 96374; 99284; A9270; J1100; J7040; Q9967